=== PATIENT | male | born 1990 ===

== ENCOUNTER 2024-01-22 19:59 | Emergency (ER) | payer OTHER ==
[2024-01-22 20:15] VITALS: BP 128/74; PULSE 68; RESP 18; TEMP 98.5; BMI 24.5
[2024-01-22] MEDS ORDERED: METHOCARBAMOL 500 MG TABLET ONE (21:18)
[2024-01-22] MEDS ORDERED: LIDOCAINE 4% PATCH TP ONE (21:18)
[2024-01-22] MEDS ORDERED: IBUPROFEN 600 MG TABLET (FP) PO ONE (21:18)
[2024-01-22] MEDS: METHOCARBAMOL 500 MG TABLET PO ONE (21:21)
[2024-01-22] MEDS: LIDOCAINE 4% PATCH TP ONE (21:21)
[2024-01-22] MEDS: IBUPROFEN 600 MG TABLET (FP) PO ONE (21:21)
[2024-01-22] MEDS ORDERED: LIDOCAINE PATCH REMOVAL MC SCH (22:00)
== END 2024-01-22 21:57 | disposition home or self-care (01) ==
LOC: JERFT 19:59 → JER 19:59 → JERFT 21:57
DX: S50.311A Abrasion of right elbow, initial encounter (principal); S50.312A Abrasion of left elbow, initial encounter; M54.2 Cervicalgia; Y04.8XXA Assault by other bodily force, initial encounter
CPT/HCPCS: 99283-25